=== PATIENT | male | born 2000 | race Caucasian/White ===

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

== ENCOUNTER 2021-04-07 13:57 | Emergency (ER) | payer OTHER ==
[~2021-04-07] VITALS: Ht 182.8 cm; Wt 68.9 kg
[2021-04-07 14:33] LABS: BASO % 0.3 % (0.0-1.0); EOS # 0.1 10*3/uL (0.0-0.4); EOS % 1.4 % (1.0-4.0); HEMATOCRIT 45.9 % (42.0-52.0); LYMPH # 2.9 10*3/uL (1.3-4.4); LYMPH % 39.3 % (27.0-41.0); MEAN CELL VOLUME 87.9 fl (80.0-94.0); MEAN CORPUSCULAR HGB 30.3 pg (27.0-31.0); MEAN CORPUSCULAR HGB CONC 34.4 g/dl (33.0-37.0); MEAN PLATELET VOLUME 8.7 fl (9.6-12.3); MONO # 0.4 10*3/uL (0.1-1.0); MONO % 5.7 % (3.0-9.0); NEUT # 3.9 10*3/uL (2.3-7.9); NEUT % 53.2 % (47.0-73.0); PLATELET COUNT AUTOMATED 277 10*3/uL (130-400); RED BLOOD COUNT 5.22 10*6/uL (4.50-5.90); RED CELL DISTRI WIDTH 11.8 % (0-14.5); WHITE BLOOD COUNT 7.4 10*3/uL (4.8-10.8)
[2021-04-07 14:49] LABS: ALBUMIN 4.4 gm/dl (3.1-4.5); ALKALINE PHOSPHATASE 86 U/L (45-117); BUN 20 mg/dl (7-24); CHLORIDE 105 mmol/L (98-107); POTASSIUM 3.7 mmol/L (3.5-5.1); SGOT/AST 24 IU/L (3-35); SGPT/ALT 44 U/L (12-78); SODIUM 140 mmol/L (136-145); TOTAL PROTEIN 8.5 gm/dL (6.4-8.2)
== END 2021-04-07 15:15 | disposition home or self-care (01) ==
LOC: ED 13:57
PROVIDERS: Student in an Organized Health Care Education/Training Program
DX: T73.0XXA Starvation, initial encounter (principal); Z88.0 Allergy status to penicillin; Z79.899 Other long term (current) drug therapy; X58.XXXA Exposure to other specified factors, initial encounter

== ENCOUNTER 2021-05-01 20:05 | Emergency (ER) | payer OTHER ==
[~2021-05-01] VITALS: Ht 180.3 cm; Wt 68.9 kg
[2021-05-01 20:39] LABS: BASO % 0.6 % (0.0-1.0); EOS # 0.2 10*3/uL (0.0-0.4); EOS % 2.7 % (1.0-4.0); HEMATOCRIT 43.1 % (42.0-52.0); LYMPH # 3.7 10*3/uL (1.3-4.4); LYMPH % 51.5 % (27.0-41.0); MEAN CELL VOLUME 88.7 fl (80.0-94.0); MEAN CORPUSCULAR HGB 30.7 pg (27.0-31.0); MEAN CORPUSCULAR HGB CONC 34.6 g/dl (33.0-37.0); MEAN PLATELET VOLUME 8.5 fl (9.6-12.3); MONO # 0.7 10*3/uL (0.1-1.0); NEUT # 2.5 10*3/uL (2.3-7.9); NEUT % 35.1 % (47.0-73.0); PLATELET COUNT AUTOMATED 282 10*3/uL (130-400); RED BLOOD COUNT 4.86 10*6/uL (4.50-5.90); RED CELL DISTRI WIDTH 12.3 % (0-14.5); WHITE BLOOD COUNT 7.1 10*3/uL (4.8-10.8)
[2021-05-01 20:56] LABS: ALKALINE PHOSPHATASE 87 U/L (45-117); BUN 13 mg/dl (7-24); CHLORIDE 105 mmol/L (98-107); CPK 108 U/L (39-308); CREATININE 0.81 mg/dL (0.70-1.30); SGOT/AST 23 IU/L (3-35); SGPT/ALT 40 U/L (12-78); SODIUM 139 mmol/L (136-145); TOTAL PROTEIN 7.8 gm/dL (6.4-8.2)
== END 2021-05-01 21:24 | disposition home or self-care (01) ==
LOC: ED 20:05
PROVIDERS: Internal Medicine
DX: Z00.00 Encounter for general adult medical examination without abnormal findings (principal)

== ENCOUNTER 2021-07-23 18:50 | Emergency (ER) | payer OTHER | END 2021-07-23 21:17 | disposition home or self-care (01) | LOC: ED 18:50 | DX: S90.31XA Contusion of right foot, initial encounter (principal); Z88.0 Allergy status to penicillin; W22.8XXA Striking against or struck by other objects, initial encounter; Y93.89 Activity, other specified; Y92.89 Other specified places as the place of occurrence of the external cause; Y99.8 Other external cause status ==

== ENCOUNTER 2022-06-18 12:18 | Emergency (ER) | payer OTHER ==
[~2022-06-18] VITALS: Ht 182.8 cm; Wt 72.6 kg
== END 2022-06-18 13:23 | disposition left against medical advice (07) ==
LOC: ED 12:18
DX: R07.89 Other chest pain (principal); Z53.21 Procedure and treatment not carried out due to patient leaving prior to being seen by health care provider

== ENCOUNTER 2022-07-01 21:57 | Emergency (ER) | payer OTHER ==
[2022-07-01 23:58] LABS: BILIRUBIN Negative (Negative); BLOOD Negative (Negative); CLARITY Clear (Clear); COLOR Yellow (Yellow); GLUCOSE Negative (Negative); KETONE 1+ (Negative); LEUKO ESTERASE Negative (Negative); NITRITE Negative (Negative); PH 5.5 (4.5-8.0); SPECIFIC GRAVITY 1.025 (1.001-1.030); UROBILINOGEN 0.2 E.U./dl (0.0-1.0)
[2022-07-01 23:59] LABS: BUN 10 mg/dl (9-23); CHLORIDE 107 mmol/L (98-107); POTASSIUM 3.7 mmol/L (3.4-5.1)
== END 2022-07-02 03:03 | disposition home or self-care (01) ==
LOC: ED 21:57
PROVIDERS: Emergency Medicine
DX: E86.0 Dehydration (principal); Z88.0 Allergy status to penicillin

== ENCOUNTER 2022-09-18 18:58 | Emergency (ER) | payer OTHER ==
[~2022-09-18] VITALS: Ht 170.1 cm; Wt 76.7 kg
== END 2022-09-18 19:57 | disposition home or self-care (01) ==
LOC: ED 18:58
DX: M25.571 Pain in right ankle and joints of right foot (principal); Z88.0 Allergy status to penicillin

== ENCOUNTER 2022-11-18 12:44 | Emergency (ER) | payer OTHER ==
[~2022-11-18] VITALS: Ht 182.8 cm; Wt 74.8 kg
[2022-11-18 14:06] LABS: BASO % 0.2 % (0.0-1.0); EOS # 0.1 10*3/uL (0.0-0.4); EOS % 1.5 % (1.0-4.0); HEMATOCRIT 38.9 % (42.0-52.0); LYMPH # 0.3 10*3/uL (1.3-4.4); LYMPH % 5.1 % (27.0-41.0); MEAN CELL VOLUME 88.8 fl (80.0-94.0); MEAN CORPUSCULAR HGB 31.3 pg (27.0-31.0); MEAN CORPUSCULAR HGB CONC 35.2 g/dl (33.0-37.0); MEAN PLATELET VOLUME 8.7 fl (9.6-12.3); MONO # 0.5 10*3/uL (0.1-1.0); MONO % 7.8 % (3.0-9.0); NEUT % 85.2 % (47.0-73.0); PLATELET COUNT AUTOMATED 199 10*3/uL (130-400); RED BLOOD COUNT 4.38 10*6/uL (4.50-5.90); RED CELL DISTRI WIDTH 12.1 % (0-14.5); WHITE BLOOD COUNT 5.9 10*3/uL (4.8-10.8)
[2022-11-18 14:33] LABS: ALKALINE PHOSPHATASE 73 U/L (46-116); BUN 9 mg/dl (9-23); CHLORIDE 107 mmol/L (98-107); POTASSIUM 3.9 mmol/L (3.4-5.1); SGPT/ALT 22 U/L (10-49); TOTAL PROTEIN 6.7 gm/dL (6.0-8.0)
[2022-11-18] MEDS ORDERED: REGLAN10 M1 PO (14:46)
[2022-11-18] MEDS ORDERED: IBU800 M2 PO (14:46)
== END 2022-11-18 15:02 | disposition home or self-care (01) ==
LOC: ED 12:44
PROVIDERS: Emergency Medicine
DX: R51.9 Headache, unspecified (principal); M54.50 Low back pain, unspecified; R56.9 Unspecified convulsions; R11.2 Nausea with vomiting, unspecified; Z88.0 Allergy status to penicillin; F17.200 Nicotine dependence, unspecified, uncomplicated

== ENCOUNTER 2023-01-17 20:46 | Emergency (ER) | payer OTHER ==
[~2023-01-17] VITALS: Ht 182.8 cm; Wt 74.8 kg
[~2023-01-17 20:46] MED LIST changes: +IBU800 M2 PO; +REGLAN10 M1 PO
[2023-01-17 21:26] LABS: BASO % 0.3 % (0.0-1.0); EOS # 0.1 10*3/uL (0.0-0.4); EOS % 1.4 % (1.0-4.0); LYMPH # 3.1 10*3/uL (1.3-4.4); LYMPH % 47.6 % (27.0-41.0); MEAN CELL VOLUME 87.1 fl (80.0-94.0); MEAN CORPUSCULAR HGB 31.1 pg (27.0-31.0); MEAN CORPUSCULAR HGB CONC 35.7 g/dl (33.0-37.0); MEAN PLATELET VOLUME 8.6 fl (9.6-12.3); MONO # 0.4 10*3/uL (0.1-1.0); MONO % 6.6 % (3.0-9.0); NEUT # 2.9 10*3/uL (2.3-7.9); NEUT % 43.9 % (47.0-73.0); PLATELET COUNT AUTOMATED 274 10*3/uL (130-400); RED BLOOD COUNT 4.82 10*6/uL (4.50-5.90); RED CELL DISTRI WIDTH 11.9 % (0-14.5); WHITE BLOOD COUNT 6.6 10*3/uL (4.8-10.8)
[2023-01-17 21:50] LABS: ALKALINE PHOSPHATASE 79 U/L (46-116); BUN < 5 mg/dl (9-23); CHLORIDE 107 mmol/L (98-107); ETHYL ALCOHOL 3.2 mg/dl (<3); POTASSIUM 3.5 mmol/L (3.4-5.1); SGPT/ALT 12 U/L (5-49); TOTAL PROTEIN 7.3 gm/dL (6.0-8.0)
[2023-01-17 22:44] LABS: BILIRUBIN Negative (Negative); BLOOD Negative (Negative); CLARITY Clear (Clear); COLOR Yellow (Yellow); GLUCOSE Negative (Negative); KETONE Negative (Negative); LEUKO ESTERASE Negative (Negative); NITRITE Negative (Negative)
[2023-01-17 22:51] LABS: URINE AMPHETAMINES Negative (1000ng/ml); URINE BARBITURATES Negative (200ng/ml); URINE BENZODIAZEPINES Negative (200ng/ml); URINE CANNABINOIDS (THC) Negative (50ng/ml); URINE COCAINE Negative (300ng/ml); URINE METHADONE Negative (300ng/ml); URINE OPIATES Negative (300ng/ml); URINE PHENCYCLIDINE Negative (25ng/ml)
[2023-01-17 23:03] LABS: EPITHELIAL CELLS 0-2; RBC 0-2 rbc/hpf (0-2); WBC 0-2 wbc/hpf (0-5)
== END 2023-01-18 09:32 | disposition home or self-care (01) ==
LOC: ED 20:46
PROVIDERS: Nurse Practitioner Family
DX: F43.20 Adjustment disorder, unspecified (principal); F90.9 Attention-deficit hyperactivity disorder, unspecified type; F32.A Depression, unspecified; F41.9 Anxiety disorder, unspecified; Z88.0 Allergy status to penicillin

== ENCOUNTER 2023-02-06 16:48 | Emergency (ER) | payer OTHER ==
[~2023-02-06] VITALS: Ht 182.8 cm; Wt 92.5 kg
== END 2023-02-06 19:35 | disposition home or self-care (01) ==
LOC: ED 16:48
DX: S09.90XA Unspecified injury of head, initial encounter (principal); E16.2 Hypoglycemia, unspecified; Z88.0 Allergy status to penicillin; W10.9XXA Fall (on) (from) unspecified stairs and steps, initial encounter; Y93.89 Activity, other specified; Y92.241 Library as the place of occurrence of the external cause; Y99.8 Other external cause status

== ENCOUNTER 2023-04-09 15:00 | Emergency (ER) | payer OTHER ==
[~2023-04-09] VITALS: Ht 182.8 cm; Wt 74.4 kg
[2023-04-09] MEDS ORDERED: VIBRAMYCIN100 MG PO (15:17)
== END 2023-04-09 15:17 | disposition home or self-care (01) ==
LOC: ED 15:00
DX: Z20.2 Contact with and (suspected) exposure to infections with a predominantly sexual mode of transmission (principal); Z88.0 Allergy status to penicillin

== ENCOUNTER 2023-04-15 17:42 | Emergency (ER) | payer OTHER ==
[~2023-04-15] VITALS: Ht 182.8 cm; Wt 78.9 kg
[~2023-04-15 17:42] MED LIST changes: +VIBRAMYCIN100 MG PO
== END 2023-04-15 18:53 | disposition home or self-care (01) ==
LOC: ED 17:42
DX: A59.9 Trichomoniasis, unspecified (principal); Z88.0 Allergy status to penicillin

== ENCOUNTER 2023-04-17 17:39 | Emergency (ER) | payer OTHER ==
[~2023-04-17] VITALS: Ht 185.4 cm; Wt 78.9 kg
== END 2023-04-17 18:48 | disposition left against medical advice (07) ==
LOC: ED 17:39
DX: T78.40XA Allergy, unspecified, initial encounter (principal); Z88.0 Allergy status to penicillin; Z53.21 Procedure and treatment not carried out due to patient leaving prior to being seen by health care provider; X58.XXXA Exposure to other specified factors, initial encounter

== ENCOUNTER 2023-09-16 20:42 | Emergency (ER) | payer OTHER ==
[~2023-09-16] VITALS: Ht 185.4 cm; Wt 79.4 kg
[2023-09-16] MEDS ORDERED: FAMOTIDINE 50 ML IV ONE (20:45)
[2023-09-16] MEDS ORDERED: diphenhydrAMINE hydrochloride 50 MG/ML VIAL IV ONE (20:45)
[2023-09-16] MEDS ORDERED: methylPREDNISolone sod succ 125 MG VIAL IV ONE (20:45)
== END 2023-09-16 22:20 | disposition home or self-care (01) ==
LOC: ED 20:42
DX: T63.441A Toxic effect of venom of bees, accidental (unintentional), initial encounter (principal); T78.49XA Other allergy, initial encounter; Z88.0 Allergy status to penicillin; Y92.89 Other specified places as the place of occurrence of the external cause; X58.XXXA Exposure to other specified factors, initial encounter

== ENCOUNTER 2024-07-21 21:29 | Emergency (ER) | payer OTHER ==
[~2024-07-21] VITALS: Ht 185.4 cm; Wt 74.8 kg
[2024-07-21] MEDS ORDERED: NAPROXEN250 MG PO (22:13)
[2024-07-21] MEDS ORDERED: Ketorolac Tromethamine 60 MG/2 ML VIAL IM ONE (22:15)
== END 2024-07-21 22:31 | disposition home or self-care (01) ==
LOC: ED 21:29
DX: S93.401A Sprain of unspecified ligament of right ankle, initial encounter (principal); Z88.0 Allergy status to penicillin; X50.1XXA Overexertion from prolonged static or awkward postures, initial encounter; Y93.01 Activity, walking, marching and hiking; Y92.89 Other specified places as the place of occurrence of the external cause; Y99.8 Other external cause status